=== PATIENT | male | born 1965 | race Caucasian/White ===

== ENCOUNTER 2016-11-05 16:02 | Emergency (ER) | payer MEDICARE | END 2016-11-05 18:25 | disposition home or self-care (01) | LOC: ER1 16:02 | DX: S39.012A Strain of muscle, fascia and tendon of lower back, initial encounter (principal); G89.29 Other chronic pain; I10 Essential (primary) hypertension; I25.10 Atherosclerotic heart disease of native coronary artery without angina pectoris; F17.210 Nicotine dependence, cigarettes, uncomplicated; W10.9XXA Fall (on) (from) unspecified stairs and steps, initial encounter | CPT/HCPCS: 72131; 96372; 99283; J1100; J1885 ==

== ENCOUNTER 2016-12-18 15:21 | Emergency (ER) | payer MEDICARE | END 2016-12-18 17:17 | disposition home or self-care (01) | LOC: ER1 15:21 | DX: S52.501A Unspecified fracture of the lower end of right radius, initial encounter for closed fracture (principal); I10 Essential (primary) hypertension; M54.5 Low back pain; G89.29 Other chronic pain; F17.210 Nicotine dependence, cigarettes, uncomplicated; Z79.891 Long term (current) use of opiate analgesic; W19.XXXA Unspecified fall, initial encounter | CPT/HCPCS: 29125; 73110; 99283 ==